=== PATIENT | female | born 2000 | race Caucasian/White ===

== ENCOUNTER → 2022-04-02 | Outpatient (CLI) | payer BC ==
[~2022-04-02] MED LIST: AUGMENTIN 875-1 EACH PO; EPIPEN 2-P0.3 MG/0.3 INJ; IBUPROFEN600 MG PO; PREDNISONE 20 M20 MG PO; PROVENTIL HFA 61 INH INH; TYLENOL 325MG325 MG PO
== END ==
LOC: RAD 11:17
DX: R07.89 Other chest pain (principal); R10.13 Epigastric pain
CPT/HCPCS: 71046; 74018